=== PATIENT | male | born 1980 | race African-American/Black ===

== ENCOUNTER 2020-03-03 23:45 | Emergency (ER) | payer MEDICAID ==
[~2020-03-03] VITALS: Ht 188 cm; Wt 65.8 kg
[2020-03-03 23:50] VITALS: BP 158/89
[2020-03-03] MEDS ORDERED: ONDANSETRON 4 MG ODT PO ONE (23:55)
--- NOTE | 2020-03-03 23:55 | NUR ---
PT AMBULATED TO BED #6
--- NOTE | 2020-03-03 23:57 | NUR ---
covering primary RN for lunch relief. pt reports nausea secondary to substance abuse. pt endorses meth, heroin, and etoh consumption. no distress noted. pt appears agitated but redirectable. in bed for mse.
--- NOTE | 2020-03-04 00:07 | NUR ---
Dr. Parry performing MSE at bedside.
--- NOTE | 2020-03-04 00:26 | NUR ---
provided with socks and sandwich. pollo for d/c for Dr Don.
--- NOTE | 2020-03-04 00:31 | NUR ---
Patient discharged with v/s stable. Written and verbal after care instructions given and explained. Patient alert, oriented and verbalized understanding of instructions. Ambulatory with steady gait. All questions addressed prior to discharge. ID band removed. Patient advised to follow up with PMD. Rx of zofran, motrin given. Patient educated on indication of medication including possible reaction and side effects. Opportunity to ask questions provided and answered.
[2020-03-04 00:33] VITALS: BP 158/89
== END 2020-03-04 00:33 | disposition home or self-care (01) ==
LOC: MED 23:45
DX: F15.10 Other stimulant abuse, uncomplicated (principal); F11.10 Opioid abuse, uncomplicated; R11.0 Nausea; F22 Delusional disorders; F17.200 Nicotine dependence, unspecified, uncomplicated; Z98.890 Other specified postprocedural states
CPT/HCPCS: 99283; Q0162

== ENCOUNTER 2020-12-07 22:21 | Emergency (ER) | payer MEDICAID ==
[~2020-12-07] VITALS: Ht 185.4 cm; Wt 90.7 kg
[2020-12-07 22:28] VITALS: BP 106/64
--- NOTE | 2020-12-07 22:28 | NUR ---
TO BED AMBULATORY
--- NOTE | 2020-12-07 22:40 | NUR ---
PATIENT PRESENTS TO ED WITH C/O ANXIETY . DENIES N/V/D; SKIN IS PINK/WARM/DRY; AAOX4 WITH EVEN AND STEADY GAIT;IS ANXOUS. LUNGS CLEAR BL; HR EVEN AND REGULAR; PT DENIES ANY FEVER, CP, SOB, OR COUGH AT THIS TIME; VSS; PATIENT POSITIONED FOR COMFORT; HOB ELEVATED; BEDRAILS UP X2; BED DOWN. ER MD MADE AWARE OF PT STATUS.
--- NOTE | 2020-12-07 22:56 | NUR ---
AMBULATED TO BR
--- NOTE | 2020-12-07 23:20 | NUR ---
DR. BLACKWOOD AT BEDSIDE FOR EXAM
[2020-12-07 23:55] LABS: BASOPHILS # (AUTO) 0.1 K/uL (0.00-0.22); BASOPHILS % (AUTO) 0.9 % (0.0-2.0); EOSINOPHILS # (AUTO) 0.7 K/uL (0-0.4); EOSINOPHILS % (AUTO) 9.4 % (0.0-4.0); HEMOGLOBIN 13.7 g/dL (12.0-18.0); LYMPHOCYTES # (AUTO) 2.1 K/uL (2.0-11.5); LYMPHOCYTES % (AUTO) 29.3 % (20.5-51.1); MEAN CORPUSCULAR HEMOGLOBIN 30 pg (27-31); MEAN CORPUSCULAR HGB CONC 34 g/dL (33-37); MEAN CORPUSCULAR VOLUME 90.3 fL (80-94); MONOCYTES # (AUTO) 0.7 K/uL (0.8-1.0); MONOCYTES % (AUTO) 9.8 % (1.7-9.3); NEUTROPHILS # (AUTO) 3.6 K/uL (1.8-7.7); NEUTROPHILS % (AUTO) 50.6 % (42.2-75.2); PLATELET COUNT (AUTO) 228 K/uL (140-450); RED BLOOD CELL COUNT(AUTO) 4.54 MIL/uL (4.20-6.10); RED CELL DISTRIBUTION WIDTH 14.1 % (11.6-13.7); WHITE BLOOD COUNT (AUTO) 7.1 K/uL (4.8-10.8)
[2020-12-07 23:58] LABS: BARBITURATE, URINE NEGATIVE ng/ml (NEG <=200)
[2020-12-07 23:59] LABS: BENZODIAZEPINE, URINE NEGATIVE ng/mL (NEG <=200); CANNABINOID, URINE POSITIVE ng/mL (NEG <=50); COCAINE, URINE NEGATIVE ng/mL (NEG <=300); OPIATE, URINE NEGATIVE ng/mL (NEG <=2000); PHENCYCLIDINE SCREEN,URINE NEGATIVE ng/mL (NEG <=25)
[2020-12-08 00:11] LABS: ALBUMIN 3.8 g/dL (3.4-5.0); ANION GAP 15.5 (8-16); ASPARTATE AMINOTRANSFERASE 32 U/L (15-37); CARBON DIOXIDE 24.4 mmol/L (21-32); CHLORIDE 105 mmol/L (98-107); CREATININE 1.1 mg/dL (0.6-1.3); GFR ARICAN-AMERICAN 95 mL/min (>90); GLUCOSE 102 mg/dL (74-106); POTASSIUM 3.9 mmol/L (3.5-5.1); SODIUM SERUM 141 mmol/L (136-145); TOTAL BILIRUBIN 0.6 mg/dL (0.0-1.0); UREA NITROGEN, BLOOD 24 mg/dL (7-18)
--- NOTE | 2020-12-08 01:02 | NUR ---
TELEPSYCH INTIATED PER DR. Mixon'S REQUEST
--- NOTE | 2020-12-08 01:48 | NUR ---
PT SPEAKING WITH TELEPSYCH AT THIS TIME.
[2020-12-08] MEDS ORDERED: LORazepam 1 MG TAB PO ONE ×2 (02:10→02:25)
[2020-12-08] MEDS ORDERED: LITHIUM CARBONATE 300 MG TAB PO ONE ×2 (02:10→02:25)
[2020-12-08 02:54] VITALS: BP 116/72
--- NOTE | 2020-12-08 02:54 | NUR ---
Patient discharged with v/s stable. Written and verbal after care instructions given and explained. Patient verbalized understanding. Ambulatory with steady gait. All questions addressed prior to discharge. Advised to follow up with PMD.
== END 2020-12-08 02:54 | disposition home or self-care (01) ==
LOC: MED 22:21
DX: F41.9 Anxiety disorder, unspecified (principal); Z20.822 Contact with and (suspected) exposure to COVID-19
CPT/HCPCS: 36415; 80053; 80305; 85025; 87426; 99283; G0482